=== PATIENT | male | born 1965 | race African-American/Black ===

== ENCOUNTER 2019-05-19 03:00 | Emergency (ER) | payer OTHER ==
[2019-05-19 03:22] VITALS: PULSE 67; TEMP 97.8; BMI 32.5
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
[2019-05-19] MEDS ORDERED: FLUORESCEIN NA 1 EA STRIP OU ONE (04:02)
[2019-05-19] MEDS ORDERED: TETRACAINE 0.5% OPHTH SOLN 2 ML BOTTLE OU ONE (04:02)
[2019-05-19] MEDS ORDERED: TETRACAINE 0.5% OPHTH SOLN 2 ML BOTTLE ONE (04:06)
[2019-05-19] MEDS ORDERED: FLUORESCEIN NA 1 EA STRIP ONE ×2 (04:06→05:23)
--- NOTE | 2019-05-19 04:13 | PDOC ---
Attending Attestation - Resident Resident Name: Wanda Pinon - ED Attending Attestation I have performed the following: I have examined & evaluated the patient, The case was reviewed & discussed with the resident, I agree w/resident's findings & plan - HPI HPI: 05/23/19 22:40 53-year-old male with past medical history of hypertension presented to the emergency department for a left eye pain for 1.5 days. 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 He reported the pain has been constant and persisted, prompting him to come to the emergency department. He reported no changes to his vision, denied headache. He denied other injuries. Pt denied contact use. Pt reported glasses use, but does not have them today. - Physicial Exam PE: 05/19/19 04:52 vision 20/20 on right 20/40 on left; pt has glasses for his left eye left eye + abrasion on cornea rest of exam normal Agree with resident exam. - Medical Decision Making 05/19/19 04:53 Pt will follow with ophtho as an outpatient. 05/23/19 22:41 We removed speck of metal from his eye. Pt has corneal abrasion and he has been given abx for the eye
[2019-05-19] MEDS ORDERED: ERYTHROMYCIN 0.5% OPHTHALMIC OINTMENT 3.5 GM TUBE OU ONE (04:25)
[2019-05-19] MEDS ORDERED: ERYTHROMYCIN 0.5% OPHTHALMIC OINTMENT 3.5 GM TUBE ONE (04:36)
[2019-05-19 04:41] VITALS: BP 157/92
[2019-05-19] MEDS ORDERED: FLUORESCEIN NA 1 EA STRIP OS ONE (05:22)
== END 2019-05-19 05:32 | disposition home or self-care (01) ==
LOC: JER 03:00
PROC: 4A07X0Z Measurement of Visual Acuity, External Approach (ICD-10-PCS; principal; 2019-05-19)
DX: T15.02XA Foreign body in cornea, left eye, initial encounter (principal); H44.792 Retained (old) intraocular foreign body, nonmagnetic, in other or multiple sites, left eye; X58.XXXA Exposure to other specified factors, initial encounter; Y93.89 Activity, other specified; Y92.63 Factory as the place of occurrence of the external cause; Y99.0 Civilian activity done for income or pay; Z18.89 Other specified retained foreign body fragments
CPT/HCPCS: 99283-25

== ENCOUNTER 2021-10-20 08:12 | Emergency (ER) | payer SELFPAY ==
[2021-10-20 08:27] VITALS: BP 161/87; PULSE 83; RESP 16; TEMP 98.3; BMI 29.2
[2021-10-20] MEDS ORDERED: BACITRACIN 15 GM TUBE TOPICAL OINTMENT TP ONE (09:34)
[2021-10-20] MEDS ORDERED: BACITRACIN 15 GM TUBE TOPICAL OINTMENT ONE (09:35)
== END 2021-10-20 09:55 | disposition home or self-care (01) ==
LOC: JERFT 08:12
DX: S92.902A Unspecified fracture of left foot, initial encounter for closed fracture (principal); W20.8XXA Other cause of strike by thrown, projected or falling object, initial encounter
CPT/HCPCS: 73610-TC-LT-FY; 73630-TC-LT; 99284-25

== ENCOUNTER 2022-08-19 23:54 | Emergency (ER) | payer OTHER ==
[2022-08-20 00:03] VITALS: BMI 27.8
[2022-08-20 01:24] LABS: BASO % 0.5 % (0-2.0); EOS % 4.1 % (0-4.5); HEMATOCRIT 39.8 % (35.4-49); HEMOGLOBIN 13.7 GM/dL (11.7-16.9); LYMPH % 17.9 % (8-40); MCH 28.1 pg (25.7-33.7); MCHC 34.3 g/dl (32.0-35.9); MEAN PLT VOLUME 9.5 fl (7.5-11.1); MONO % 16.3 % (3.8-10.2); NEUT % 61.2 % (42.8-82.8); PLATELET COUNT 161 10^3/uL (134-434); RBC 4.85 M/mm3 (4.00-5.60); RDW 13.7 % (11.9-15.9); WHITE BLOOD COUNT 9.1 K/mm3 (4.0-10.0)
[2022-08-20 01:37] LABS: INR 1.03 (0.83-1.09); PROTHROMBIN TIME (PATIENT) 11.9 SEC (9.7-13.0)
[2022-08-20 01:38] VITALS: BP 167/88; PULSE 76; RESP 17; TEMP 98.2
[2022-08-20 01:40] LABS: ACTIVATED PTT 35.8 SECONDS (25.2-36.5)
[2022-08-20 02:06] LABS: POTASSIUM 4.2 mmol/L (3.5-5.1)
[2022-08-20 02:08] LABS: ALBUMIN 3.3 g/dl (3.4-5.0); CALCIUM 9.3 mg/dL (8.5-10.1)
[2022-08-20 02:09] LABS: BLOOD UREA NITROGEN 19.6 mg/dL (7-18)
[2022-08-20 02:13] LABS: CREATININE 1.1 mg/dL (0.55-1.3); TOT PROT 7.8 g/dl (6.4-8.2)
[2022-08-20 03:04] LABS: THROAT:GRP A STREP NOT DETECTED (NOTDETECTED)
[2022-08-20 03:32] LABS: BILIRUBIN,TOTAL 0.6 mg/dL (0.2-1)
== END 2022-08-20 04:28 | disposition home or self-care (01) ==
LOC: JER 23:54
DX: R05.9 Cough, unspecified (principal); R06.02 Shortness of breath; J02.9 Acute pharyngitis, unspecified; J04.0 Acute laryngitis; J06.9 Acute upper respiratory infection, unspecified; I10 Essential (primary) hypertension; Z20.822 Contact with and (suspected) exposure to COVID-19
CPT/HCPCS: 0241U-QW; 36415; 71046-TC-FY; 80053; 83735; 84443; 84484; 85025; 85610; 85730; 87651; 93005; 93010; 99285-25